=== PATIENT | female | born 1955 | race Caucasian/White ===

== ENCOUNTER 2017-03-19 11:42 | Emergency (ER) | payer MEDICAID ==
[~2017-03-19 11:42] MED LIST: ADVIL200 M1 PO; AMBIEN5 M1 PO; ATORVASTATIN CA40 MG PO; AVELOX400 MG; CELEXA20 MG; CIPRO500 MG; COLACE100 MG PO; CYCLOBENZAPRINE10 M1 PO; CYMBALTA30 MG PO; CYMBALTA60 M1 PO; ESTRACE0.5 MG PO; ESTRACE1 M1 PO; ESTRACE1 MG; ESTRADIOL0.5 M2 PO; ESTRADIOL0.5 MG PO; EXCEDRIN PM 501 EAC1 PO; FLAGYL500 MG; FLAGYL500 MG PO; FLEXERIL10 MG PO; LEVOTHROID50 MCG PO; LEVOXYL50 MCG PO; LIPITOR40 MG PO; LUNESTA1 MG PO; LUNESTA3 MG PO; LYRICA150 MG/CAP PO; MEDROL4 MG/DOSE- PO; MELATONIN5 M5 PO; NORCO 5/325 TAB1 TAB PO; NORCO 5/3251 TA1 PO; NUCYNTA50 MG PO; OMEPRAZOLE20 M3 PO; PREMARIN0.3 MG/TAB PO; PROTONIX40 MG; SYNTHROID50 MC1 PO; TRICOR48 M2 PO; TRILIPIX135 MG PO; TUMS500 M1 PO; TYLENOL325 MG PO; ULTRAM50 M1 PO; UNISOM50 MG PO; VIIBRYD40 MG PO; VITAMIN D1000 UNI1 PO; VITAMIN D35000 UNIT PO
[2017-03-19 12:29] LABS: BASO % 1.3 % (0-2); BASO ABSOLUTE COUNT 0.1 tho/cmm (0.0-0.2); EOSINOPHIL ABSOLUTE COUNT 0.2 tho/cmm (0.0-0.7); HCT-HEMATOCRIT 41.8 % (34.0-49.0); HGB-HEMOGLOBIN 13.9 gm/dl (12.0-15.5); IMMATURE GRANULOCYTES ABSOLUTE 0.01 tho/cmm (0-0.03); IMMATURE GRANULOCYTES PERCENT 0.1 % (0-0.3); LYMPH % 37.6 % (20-45); LYMPH ABSOLUTE COUNT 2.7 tho/cmm (0.8-4.5); MCH (MEAN CORPUSCULAR HGB) 29.4 pg (28.0-32.0); MCHC MEAN CORPUSCULAR HGB CONC 33.3 % (32.0-36.0); MCV (MEAN CELL VOLUME) 88.6 fl (82.0-96.0); MEAN PLATELET VOLUME 10.8 cmc (9.4-12.4); MONOCYTE ABSOLUTE COUNT 0.6 tho/cmm (0.0-1.2); NEUTROPHIL ABSOLUTE COUNT 3.5 tho/cmm (1.6-8.0); NEUTROPHIL-AUTOMATED 3.5 tho/cmm (1.6-8.0); PLATELET COUNT 295 tho/cmm (150-450); RED BLOOD COUNT 4.72 mil/cmm (4.00-5.20); RED CELL DISTRIBUTION WIDTH 14.3 % (12.4-16.4); WHITE BLOOD COUNT 7.1 tho/cmm (4.0-10.0)
[2017-03-19 12:41] LABS: ALBUMIN 3.7 g/dl (3.5-5.0); ALKALINE PHOSPHATASE 79 U/L (33-138); ALT/SGPT 22 U/L (12-78); ANION GAP 11 mmol/L (0-20); AST/SGOT 13 U/L (10-40); BILIRUBIN,TOTAL 0.3 mg/dl (0-1.5); BLOOD UREA NITROGEN 15 mg/dl (6-24); CALCIUM 8.9 mg/dl (8.5-10.5); CARBON DIOXIDE-VENOUS 26 mmol/L (22-32); CHLORIDE 108 mmol/l (96-110); CREATININE 0.96 mg/dl (0.50-1.10); GLUCOSE 83 mg/dL (70-110); LIPASE 115 U/L (73-393); POTASSIUM 4.2 mmol/L (3.7-5.1); SODIUM 141 mmol/L (135-145); eGFR VALUE FOR BLACK 75 mL/Min
[2017-03-19 13:20] LABS: URINE APPEARANCE CLEAR; URINE BILIRUBIN NEGATIVE (NEG); URINE BLOOD NEGATIVE (NEG); URINE COLOR YELLOW; URINE GLUCOSE (UA) NEGATIVE (NEG); URINE KETONE NEGATIVE (NEG); URINE LEUKOCYTE ESTERASE NEGATIVE (NEG); URINE NITRITE NEGATIVE (NEG); URINE PROTEIN NEGATIVE (NEG); URINE SPECIFIC GRAVITY 1.015 (1.003-1.030)
[2017-03-19] MEDS ORDERED: NORCO 5-325 TA1 EACH PO (15:16)
[2017-03-19] MEDS ORDERED: ZOFRAN4 M2 PO (15:16)
[2017-03-19] MEDS ORDERED: CARAFATE1 G2 PO (15:16)
== END 2017-03-19 15:32 ==
LOC: EDMED 11:42
PROVIDERS: Physician Assistant
DX: R10.11 Right upper quadrant pain (principal); R10.13 Epigastric pain; R11.0 Nausea; K21.9 Gastro-esophageal reflux disease without esophagitis; Z90.49 Acquired absence of other specified parts of digestive tract; Z98.890 Other specified postprocedural states; F17.210 Nicotine dependence, cigarettes, uncomplicated
CPT/HCPCS: J1170; J2405; J7030; Q9967